=== PATIENT | female | born 2005 ===

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

== ENCOUNTER 2025-02-05 19:26 | Outpatient (REF) | payer MEDICAID, SELFPAY ==
[2025-02-05 20:21] LABS: Iron 42 ug/dL (50-170); Total Iron Binding Capacity 354 ug/dL (250-450); Transferrin Sat 12 % (15-50)
[2025-02-05 20:24] LABS: Ferritin 119 ng/mL (8-252)
== END 2025-02-05 19:27 | disposition home or self-care (01) ==
LOC: NCHCN 19:26
PROVIDERS: Visit Provider Physician Assistant
DX: E61.1 Iron deficiency (principal)
CPT/HCPCS: 82728; 83540; 83550